=== PATIENT | male | born 1995 | race African-American/Black ===

== ENCOUNTER 2018-08-19 15:54 | Emergency (ER) | payer SELFPAY ==
[~2018-08-19] VITALS: Ht 182.9 cm; Wt 93.0 kg
[2018-08-19 16:03] VITALS: BP 133/75
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
[2018-08-19] MEDS ORDERED: IBUPROFEN 600 MG TABLET. PO ONE (16:30)
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
== END 2018-08-19 17:04 | disposition home or self-care (01) ==
LOC: ER 15:54
DX: S29.012A Strain of muscle and tendon of back wall of thorax, initial encounter (principal); M54.2 Cervicalgia; Z88.5 Allergy status to narcotic agent; V43.92XA Unspecified car occupant injured in collision with other type car in traffic accident, initial encounter; Y93.89 Activity, other specified; Y92.410 Unspecified street and highway as the place of occurrence of the external cause; Y99.8 Other external cause status
CPT/HCPCS: 71100; 99284